=== PATIENT | male | born 1950 | race Caucasian/White ===

== ENCOUNTER 2019-05-01 12:56 | Inpatient (IN) | payer MEDICARE, BC ==
[~2019-05-01] VITALS: Ht 182.9 cm; Wt 108.2 kg
[~2019-05-01 12:56] MED LIST: ASPIRIN325 MG PO; ATACAND HCT 32-1 TAB PO; BAYER CHEWABLE81 MG PO; BENADRYL25 MG PO; BENICAR HCT 40-1 TA1 PO; BETAPACE 80 MG80 MG PO; BETAPACE160 MG PO; CARDIZEM CD240 MG PO; CATAPRES0.1 MG PO; CLARITIN 10 MG10 MG PO; CRESTOR10 MG PO; CRESTOR20 MG PO; CYCLOBENZAPRINE10 MG PO; ELIQUIS5 MG PO; FLOVENT HFA 11012 GM INH; FOLIC ACID1 MG PO; K-DUR20 MEQ; LASIX40 MG PO; MELATONIN 10 M1 EACH PO; MULTIPLE VITAMI1 TA1 PO; NASONEX NASAL S17 GM NS; NITROSTAT0.4 MG SL; NORCO 7.5/325 T1 TA1; PLAVIX75 MG PO; SAW PALMETTO450 MG OR; VALTREX500 MG PO; VITAMIN B-1000 MCG/M IM; VITAMIN B-121000 MC3 GT; VOLTAREN100 MG PO; VOLTAREN25 MG
[2019-05-01] MEDS ORDERED: COZAAR50 MG PO (13:30)
[2019-05-01] MEDS ORDERED: ATIVAN1 MG PO (13:32)
[2019-05-01] MEDS ORDERED: COREG25 MG PO (13:33)
--- NOTE | 2019-05-01 13:54 | NUR ---
PT ARRIVED FROM HOME. NO SIGNS OF DISTRESS. DENIES ANY PAIN OR NEED AT THIS TIME. CALL LIGHT IN REACH. BED LOW POSITION. FAMILY AT BEDSIDE.
[2019-05-01 17:55] VITALS: BP 166/81; BMI 32.3
[2019-05-01 18:07] VITALS: Ht 182.9 cm; Wt 108.2 kg
[2019-05-01 18:41] LABS: ANION GAP 15.9 mmol/L (8-16); C-REACTIVE PROTEIN 3.7 mg/dL (0.0-0.9); CALCIUM 8.6 mg/dL (8.5-10.1); CARBON DIOXIDE 23.9 mmol/L (21.0-32.0); CREATININE - SERUM 1.1 mg/dL (0.6-1.3); HEMATOCRIT 41.1 % (42.0-54.0); HEMOGLOBIN 14.7 g/dL (13.5-17.5); MCH 33.3 pg (26.0-34.0); MCHC 35.8 g/dL (31.0-37.0); POTASSIUM - SERUM 3.8 mmol/L (3.5-5.1); RBC 4.42 10x6/uL (4.20-6.10); RDW 12.9 % (11.5-14.5); WBC 10.5 10x3/uL (4.8-10.8)
[2019-05-01 18:42] LABS: PLATELET COUNT 194 10x3/uL (130-400)
[2019-05-01 19:45] LABS: ERYTHROCYTE SEDIMENTATION RATE 9 mm/hr (0-20)
[2019-05-01 20:16] LABS: APPEARANCE CLEAR (CLEAR); BILIRUBIN NEGATIVE (NEGATIVE); COLOR YELLOW (YELLOW); GLUCOSE NEGATIVE (NEGATIVE); KETONE NEGATIVE (NEGATIVE); NITRITE NEGATIVE (NEGATIVE); PROTEIN NEGATIVE (NEGATIVE); UROBILINOGEN NORMAL (NORMAL)
[2019-05-01 21:10] VITALS: BP 147/64
[2019-05-02 00:37] VITALS: BP 141/68
[2019-05-02 04:02] LABS: BASOPHILS 0.2 % (0-2); EOSINOPHILS 1.2 % (0-7); HEMATOCRIT 40.1 % (42.0-54.0); HEMOGLOBIN 14.1 g/dL (13.5-17.5); IMMATURE GRANULOCYTES 0.2 % (0-5); LYMPHOCYTES 13.6 % (15-50); MCH 32.8 pg (26.0-34.0); MCHC 35.2 g/dL (31.0-37.0); MCV 93.3 fL (80.0-100.0); MEAN PLATELET VOLUME 10.2 fL (7.4-10.4); NEUTROPHILS 68.8 % (40-80); PLATELET COUNT 176 10x3/uL (130-400); RDW 13.1 % (11.5-14.5); WBC 10.1 10x3/uL (4.8-10.8)
[2019-05-02 04:10] LABS: ANION GAP 11.3 mmol/L (8-16); CALCIUM 8.2 mg/dL (8.5-10.1); CARBON DIOXIDE 28.5 mmol/L (21.0-32.0); CREATININE - SERUM 1.3 mg/dL (0.6-1.3); POTASSIUM - SERUM 3.8 mmol/L (3.5-5.1)
[2019-05-02 05:49] VITALS: BP 148/72
[2019-05-02 08:40] VITALS: BP 152/69
--- NOTE | 2019-05-02 09:00 | NUR ---
FLORENTINO AND ORIENTED WITH PT. NPO FOR PROCEDURE WITH CONSENTSW SIGNED AND VERBALIZED UNDERSTANDING. IVF INFUSING AT PRESCRIBED RATE WITH PT. RECEIVING HIBICLES BATH PRIOR TO SURGERY. SCD'S INTACT. REDNESS AND WARMTH NOTED TO RT. ELBOW WITH LIMITED ROM. ENCOURAGED TO USE CALL LIGHT FOR ASSIST.
[2019-05-02 13:04] VITALS: BP 107/65
--- NOTE | 2019-05-02 14:11 | NUR ---
PT LEAVING FOR PROCEDURE VIA BED VIA STAFF. STABLE AT TIME OF DEPARTURE.
[2019-05-02 16:32] VITALS: BP 112/66
[2019-05-02 19:52] VITALS: BP 119/63
--- NOTE | 2019-05-02 22:00 | NUR ---
AWAKE AND ALERT BED LOW AND LOCKED IV TO LEFT FA ARIADNE MCKENZIE ANSD DRSG TO RT ELBOW EDEMA PRESENT BUT CAP REFILL AND CIRCULATION IS GOOD CALL LIGHT IN REACH AUTO SERVICE ADVISOR FOR PAIN
--- NOTE | 2019-05-02 23:32 | NUR ---
I have reviewed this patient and I concur with the Shift Assessment completed by the Licensed Practical Nurse today this shift.
[2019-05-03 01:19] VITALS: BP 120/60
[2019-05-03 04:21] VITALS: BP 109/67
[2019-05-03 05:33] LABS: BASOPHILS 0.2 % (0-2); EOSINOPHILS 1.9 % (0-7); HEMATOCRIT 37.1 % (42.0-54.0); HEMOGLOBIN 13.1 g/dL (13.5-17.5); IMMATURE GRANULOCYTES 0.1 % (0-5); MCH 33.4 pg (26.0-34.0); MCHC 35.3 g/dL (31.0-37.0); MCV 94.6 fL (80.0-100.0); MEAN PLATELET VOLUME 10.7 fL (7.4-10.4); MONOCYTES 15.4 % (2-11); NEUTROPHILS 64.4 % (40-80); PLATELET COUNT 181 10x3/uL (130-400); RBC 3.92 10x6/uL (4.20-6.10); RDW 13.3 % (11.5-14.5)
[2019-05-03 05:49] LABS: ANION GAP 11.9 mmol/L (8-16); CALCIUM 7.8 mg/dL (8.5-10.1); CARBON DIOXIDE 25.6 mmol/L (21.0-32.0); CREATININE - SERUM 1.5 mg/dL (0.6-1.3); POTASSIUM - SERUM 3.5 mmol/L (3.5-5.1)
--- NOTE | 2019-05-03 07:35 | NUR ---
I have reviewed this patient and I concur with the Shift Assessment completed by the Licensed Practical Nurse today this shift.
[2019-05-03 08:56] LABS: ERYTHROCYTE SEDIMENTATION RATE 16 mm/hr (0-20)
--- NOTE | 2019-05-03 09:00 | NUR ---
ALERT AND ORIENTED WITH MCKENZIE WRAP INTACT TO RT. ELBOW. DECREASED EDEMA NOTED. IVF INFUSING TO LT ARM. WITH MONITOR AND STORAGE BIN TENDER DILAUDID EFECTIVE FOR PAIN MANAGEMENT. ENCOURAGED TO USE CALL LIGHT FOR ASISST. CAP REFILL LESS THAN 3 SEC TO RT HANDD.
[2019-05-03 10:07] VITALS: BP 156/75
[2019-05-03 13:28] VITALS: BP 171/97
[2019-05-03 18:01] VITALS: BP 158/82
[2019-05-03 19:45] VITALS: BP 147/92
--- NOTE | 2019-05-03 20:00 | NUR ---
ALERT UP AMBULATING IN ROOM RIGHT ARM IN SLING, EXPERIMENTAL PSYCHOLOGIST IN USE FOR PAIN CONTROL, STATES TOOK HIS OWN HEART MEDICATIONS SEE MAR FOR REPORTED HOME MEDS TAKEN AND MEDS REFUSED, SEE SHIFT ASSESSMENT CALL LIGHT IN REACH
[2019-05-04 05:26] VITALS: BP 149/69
[2019-05-04 07:44] LABS: BASOPHILS 0.2 % (0-2); EOSINOPHILS 2.6 % (0-7); IMMATURE GRANULOCYTES 0.1 % (0-5); LYMPHOCYTES 15.1 % (15-50); MCH 32.8 pg (26.0-34.0); MCHC 34.3 g/dL (31.0-37.0); MCV 95.6 fL (80.0-100.0); MEAN PLATELET VOLUME 10.4 fL (7.4-10.4); MONOCYTES 12.7 % (2-11); NEUTROPHILS 69.3 % (40-80); PLATELET COUNT 178 10x3/uL (130-400); RBC 3.66 10x6/uL (4.20-6.10); RDW 13.2 % (11.5-14.5); WBC 8.3 10x3/uL (4.8-10.8)
[2019-05-04 07:55] LABS: ANION GAP 12.4 mmol/L (8-16); CALCIUM 7.8 mg/dL (8.5-10.1); CARBON DIOXIDE 25.3 mmol/L (21.0-32.0); CREATININE - SERUM 1.4 mg/dL (0.6-1.3); MAGNESIUM - SERUM 2.2 mg/dL (1.8-2.4); POTASSIUM - SERUM 3.7 mmol/L (3.5-5.1)
--- NOTE | 2019-05-04 09:00 | NUR ---
ALERT AND ORIENTED X4 WITH DRESSING INTACT TO RT. ELBOW WITH CONTINUED EDEMA TO RT HAND AND ARM. CAP REFILL<3 SEC. CONTINUED FAST FOOD ASSISTANT RESTAURANT MANAGER DILAUDID AT PRESECRIBED RATE WITH IVF INFUSING VIALT. F/A. TELEMETRY INTACT. WITH SCD TO BLE. ENCOURAGED TO USE CALL LIGHT FOR ASSIST.
[2019-05-04 09:29] VITALS: BP 168/91
--- NOTE | 2019-05-04 11:52 | NUR ---
PT IS REFUSING TELEMETRY DUE TO STATING HAS PACEMAKER.
[2019-05-04 13:27] VITALS: BP 138/69
--- NOTE | 2019-05-04 14:17 | OP ---
PATIENT NAME: MAGALY VOGEL MEDICAL RECORD: [id number] :[birth year] LOCATION:D.MS [id number] ADMISSION DATE:05/01/19 SURGEON: TRINH GILL MD DATE OF OPERATION: 05/02/2019 PREOPERATIVE DIAGNOSIS: Septic olecranon bursitis. 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 PROCEDURES: 1. Right elbow arthrotomy with irrigation and debridement of the elbow itself. 2. Incision of the septic olecranon bursitis with incision and drainage of the septic olecranon bursitis. SURGEON: Trinh Gill MD ANESTHESIA: General. INTRAOPERATIVE COMPLICATIONS: Essentially none. SUMMARY OF PATHOLOGIC FINDINGS: The patient's elbow was found to have a mild turbid appearance of the joint fluid; however, the olecranon bursa had substantial white crystals likely consistent with pseudogout. OPERATIVE SUMMARY IN DETAIL: After obtaining the appropriate preoperative orthopedic surgery consent as well as anesthetic consultation, evaluation, and clearance, the patient was brought to the operating room and placed on the operating table in supine position. After general laryngeal mask airway was administered, the patient's right upper extremity was prepped and draped in routine sterile fashion. The arm was elevated and exsanguinated, tourniquet inflated to 250 mmHg. The incision over the olecranon bursa was encountered 1st. At this point, multiple crystals were noted. Serial and sequential removed the entire bursa itself was excised. Copious irrigation was then done. Having completed this, incision was made in the subanconeous range, taken down to the level of the joint capsule, which was incised. Fluid was noted as above. Cultures were taken and both placed in separate; irrigation of the joint itself was achieved. At this point, the actual capsule of the joint was closed with #1 Vicryl. This was followed 2-0 Vicryl and skin holly. The septic olecranon bursa area was packed with half-inch iodoform gauze. Having completed this, sterile dressings were applied. The patient was then awakened and taken to recovery in stable condition. All final needle and sponge counts were correct. TRANSINT:[id number] Voice Confirmation ID: [id number] DOCUMENT ID: [id number] TRINH GILL MD at 1417 CC: [id number] DICTATION DATE: 05/03/19 1457 MANAGER THERAPY: 05/03/[address] [facility] [address] [id number]
[2019-05-04 18:22] VITALS: BP 161/82
--- NOTE | 2019-05-04 20:00 | NUR ---
ALERT RESTING IN BED, REPORTS PAIN CONTROLED WITH TANK REFINISHER, MCKENZIE WRAP INTACT TO RIGHT ARM, SEE SHIFT ASSESSMENT, CALL LIGHT IN REACH
[2019-05-04 20:14] VITALS: BP 164/73
[2019-05-05 04:57] LABS: BASOPHILS 0.4 % (0-2); EOSINOPHILS 2.3 % (0-7); HEMOGLOBIN 12.2 g/dL (13.5-17.5); IMMATURE GRANULOCYTES 0.3 % (0-5); LYMPHOCYTES 20.9 % (15-50); MCH 32.5 pg (26.0-34.0); MCHC 33.9 g/dL (31.0-37.0); MEAN PLATELET VOLUME 10.5 fL (7.4-10.4); MONOCYTES 10.7 % (2-11); NEUTROPHILS 65.4 % (40-80); PLATELET COUNT 187 10x3/uL (130-400); RBC 3.75 10x6/uL (4.20-6.10); WBC 7.7 10x3/uL (4.8-10.8)
[2019-05-05 05:12] LABS: ANION GAP 12.2 mmol/L (8-16); CALCIUM 8.3 mg/dL (8.5-10.1); CARBON DIOXIDE 25.6 mmol/L (21.0-32.0); CREATININE - SERUM 1.3 mg/dL (0.6-1.3); POTASSIUM - SERUM 3.8 mmol/L (3.5-5.1)
[2019-05-05 05:26] VITALS: BP 153/76
[2019-05-05] MEDS ORDERED: PERCOCET 10-321 EAC1 PO (08:35)
[2019-05-05] MEDS ORDERED: VIBRAMYCIN 100100 MG PO (08:35)
[2019-05-05] MEDS ORDERED: BACTRIM 400-801 TAB PO (08:37)
[2019-05-05 09:02] VITALS: BP 157/96
--- NOTE | 2019-05-05 09:28 | MORECARE ---
CASE MANAGEMENT DISCHARGE SUMMARY PATIENT: MAGALY MATA T UNIT: [id number] ADM DATE: 05/01/19 AGE: 68 : 49 SEX: M ROOM/BED: D.2228 AUTHOR: MAY SIDDIQI PHYSICIAN: REFERRING PHYSICIAN: RENE VARNER DO DATE OF SERVICE: 05/05/19 Discharge Plan Patient Name: MAGALY MATA [facility] [facility] 1950 Planned Disposition: Home with Home Health Anticipated Discharge Date: 05/05/19 Discharge Date: Expected LOS: 4 Initial Reviewer: [email or web address] Initial Review Date: 05/06/2019 Generated: 05/05/19 10:28 am DCPIA - Discharge Planning Initial Assessment Updated by [email or web address]: Julia Méndez on 05/05/19 9:27 am * Is the patient Alert and Oriented? Yes * How many steps to enter\exit or inside your home? 1/0 * PCP Dr. Varner * Pharmacy [facility] * Preadmission Environment Home with Family * ADLs Independent * Equipment None * List name and contact numbers for known caregivers / representatives who currently or will assist patient after discharge: Ilana Mata - spouse - [phone] * Verbal permission to speak to the caregivers and representatives has been obtained from the patient. Yes * Community resources currently utilized None * Additional services required to return to the preadmission environment? Yes * Can the patient safely return to the preadmission environment? Yes * Has this patient been hospitalized within the prior 30 days at any hospital? No External Providers External Provider: [facility] Next Contact Date: Service Request Date: Service Type: Resolution: Reviewer: Comments: Patient Name: MAGALY MATA Page [phone] at 0928 All edits/amendments must be made on the electronic document DICTATION DATE: 05/05/19926 WHEEL SHOP SUPERVISOR: MIRZA 05/05/19926 RPT#: [id number] DC DATE: STATUS: ADM IN [facility] [address] [place] [address] END OF REPORT
--- NOTE | 2019-05-05 09:37 | MORECARE ---
CASE MANAGEMENT DISCHARGE SUMMARY PATIENT: MAGALY VOGEL UNIT: [id number] ADM DATE: 05/01/19 AGE: 68 : 49 SEX: M ROOM/BED: D.2228 AUTHOR: NEERU,DOC PHYSICIAN: REFERRING PHYSICIAN: RENE VARNER DO DATE OF SERVICE: 05/05/19 Discharge Plan Patient Name: MAGALY VOGEL Facility: [facility]:[place] : 1950 Planned Disposition: Home with Home Health Anticipated Discharge Date: 05/05/19 Discharge Date: Expected LOS: 4 Initial Reviewer: [email or web address] Initial Review Date: 05/06/2019 Generated: 05/05/19 10:36 am Comments DCP- Discharge Planning Updated by [email or web address]: Julia Méndez on 05/05/19 8:[address] Patient Name: MAGALY VOGEL Admission Status: Elective Accout number: [id number] Admission Date: 05-01-2019 : 1950 Admission Diagnosis: Attending: RENE VARNER Current LOS: 4 Anticipated DC Date: 05-05-2019 Planned Disposition: Home with Home Health Primary Insurance: MEDICARE A & B Discharge Planning Comments: CM met with patient to complete initial dc planning assessment. CM educated patient on the CM role and verbal consent given by patient to complete assessment. Patient lives at home with his . At discharge patient plans to return and feels this is a safe discharge. CM discussed availability of home health, rehab services, and medical equipment. ALFONZO for [facility] signed. I called [facility] and spoke with Nathalie and clinical faxed. CM will continue to follow and will assist as needed with dc plans/needs. Physical address: [address] in [facility] Dust Box Tender: Julia Méndez DCPIA - Discharge Planning Initial Assessment Updated by [email or web address]: Julia Méndez on 05/05/19 9:27 am * Is the patient Alert and Oriented? Yes * How many steps to enter\exit or inside your home? 1/0 * PCP Dr. Varner * Pharmacy [facility] * Preadmission Environment Home with Family * ADLs Independent * Equipment None * List name and contact numbers for known caregivers / representatives who currently or will assist patient after discharge: Ilana Castano [facility] - [phone] * Verbal permission to speak to the caregivers and representatives has been obtained from the patient. Yes * Community resources currently utilized None * Additional services required to return to the preadmission environment? Yes * Can the patient safely return to the preadmission environment? Yes * Has this patient been hospitalized within the prior 30 days at any hospital? No Coverage Notice Reviewer: [id number] Méndez Notice Issued Date-Time: 05/05/2019 9:30 Notice Type: IM Discharge Notice Notice Delivered To: Patient Relationship to Patient: Self Tail Board Worker Name: Delivery Method: HAND - Hand Delivered Serenity Days: Prior Verbal Notification: Recipient Understood Notice: Yes Recipient Signature: Yes Med Rec Note Co-signed by Attending: Coverage Notice Comment: IMM explained, signed, given, copy placed in MR Reviewer: [id number] Méndez Notice Issued Date-Time: 05/05/2019 9:30 Notice Type: Patient Choice Letter Notice Delivered To: Patient Relationship to Patient: Self Tail Board Worker Name: Delivery Method: HAND - Hand Delivered Serenity Days: Prior Verbal Notification: Recipient Understood Notice: Yes Recipient Signature: Yes Med Rec Note Co-signed by Attending: Coverage Notice Comment: ALFONZO for [facility] Last DP export: 05/05/19 8:28 am Patient Name: MAGALY VOGEL Page [phone] at 0937 All edits/amendments must be made on the electronic document DICTATION DATE: 05/05/19935 CHILD CARE COORDINATOR: MIRZA 05/05/19935 RPT#: [id number] DC DATE: STATUS: ADM IN [facility] [address] [place] [address] END OF REPORT
--- NOTE | 2019-05-05 10:15 | NUR ---
I have reviewed this patient and I concur with the Shift Assessment completed by the Licensed Practical Nurse today this shift.
--- NOTE | 2019-05-05 10:29 | NUR ---
As per Dr. Branch's request, dressing change done prior to d/c. Removed 1/2" packing from right elbow incision. Cleansed wound with saline and repacked with 1/4" iodoform packing. Wound bed is red and bleeds easily. No odor or signs of infection. Covered with sterile 4x4s and secured with kerlix and MCKENZIE wrap.
--- NOTE | 2019-05-05 10:37 | NUR ---
DISCHARGE INSTRUCTIONS GIVEN. SEEMS TO UNDERSTAND INSTRUCTIONS. IV OUT TIP INTACT. SLING ON. DENIES ANY NEED LEFT WITH HOSPITAL STAFF TO GO HOME WTIH FAMILY MEMBER IN PERSONAL RIDE.
--- NOTE | 2019-05-06 06:50 | MORECARE ---
CASE MANAGEMENT DISCHARGE SUMMARY PATIENT: MAGALY MATA UNIT: [id number] ADM DATE: 05/01/19 AGE: 68 : 49 SEX: M ROOM/BED: D.2228 AUTHOR: NEERU,DOC PHYSICIAN: REFERRING PHYSICIAN: RENE VARNER DO DATE OF SERVICE: 05/06/19 Discharge Plan Patient Name: MAGALY MATA Facility: [facility]:[place] : 1950 Planned Disposition: Home with Home Health Anticipated Discharge Date: 05/05/19 Discharge Date: 05/05/2019 Expected LOS: 4 Initial Reviewer: [email or web address] Initial Review Date: 05/06/2019 Generated: 05/06/19 7:50 am Comments DCP- Discharge Planning Updated by [id number]: Julia Méndez on 05/05/19 8:[address] Patient Name: MAGALY MATA Admission Status: Elective Accout number: [id number] Admission Date: 05-01-2019 : 1950 Admission Diagnosis: Attending: RENE VARNER Current LOS: 4 Anticipated DC Date: 05-05-2019 Planned Disposition: Home with Home Health Primary Insurance: MEDICARE A & B Discharge Planning Comments: CM met with patient to complete initial dc planning assessment. CM educated patient on the CM role and verbal consent given by patient to complete assessment. Patient lives at home with his . At discharge patient plans to return and feels this is a safe discharge. CM discussed availability of home health, rehab services, and medical equipment. ALFONZO for [facility] signed. I called [facility] and spoke with Nathalie and clinical faxed. CM will continue to follow and will assist as needed with dc plans/needs. Physical address: [address] in [facility] Project Officer: Julia Méndez DCPIA - Discharge Planning Initial Assessment Updated by [email or web address]: Julia Méndez on 05/05/19 9:27 am * Is the patient Alert and Oriented? Yes * How many steps to enter\exit or inside your home? 1/0 * PCP Dr. Varner * Pharmacy [facility] * Preadmission Environment Home with Family * ADLs Independent * Equipment None * List name and contact numbers for known caregivers / representatives who currently or will assist patient after discharge: Ilana Mata - spouse - [phone] * Verbal permission to speak to the caregivers and representatives has been obtained from the patient. Yes * Community resources currently utilized None * Additional services required to return to the preadmission environment? Yes * Can the patient safely return to the preadmission environment? Yes * Has this patient been hospitalized within the prior 30 days at any hospital? No Coverage Notice Reviewer: [id number] Méndez Notice Issued Date-Time: 05/05/2019 9:30 Notice Type: IM Discharge Notice Notice Delivered To: Patient Relationship to Patient: Self Brake Shoe Rebuilder Name: Delivery Method: HAND - Hand Delivered Serenity Days: Prior Verbal Notification: Recipient Understood Notice: Yes Recipient Signature: Yes Med Rec Note Co-signed by Attending: Coverage Notice Comment: IMM explained, signed, given, copy placed in MR Reviewer: [id number] Méndez Notice Issued Date-Time: 05/05/2019 9:30 Notice Type: Patient Choice Letter Notice Delivered To: Patient Relationship to Patient: Self Brake Shoe Rebuilder Name: Delivery Method: HAND - Hand Delivered Serenity Days: Prior Verbal Notification: Recipient Understood Notice: Yes Recipient Signature: Yes Med Rec Note Co-signed by Attending: Coverage Notice Comment: ALFONZO for [facility] Last DP export: 05/05/19 8:37 am Patient Name: MAGALY MATA Page [phone] at 0650 All edits/amendments must be made on the electronic document DICTATION DATE: 05/06/19 0650 BRANCH SPECIALIST: MIRZA 05/06/19 0650 RPT#: [id number] DC DATE:05/05/19 STATUS: DIS IN [facility] [address] [place] [address] END OF REPORT
== END 2019-05-05 10:38 | disposition home health service (06) | DRG 507 ==
LOC: D.MS 12:56
PROVIDERS: Internal Medicine Nephrology; Orthopaedic Surgery; ADMIT Family Medicine; ATTEND Family Medicine
PROC: 0R9L0ZZ Drainage of Right Elbow Joint, Open Approach (ICD-10-PCS; principal; 2019-05-02 15:15)
DX: M71.121 Other infective bursitis, right elbow (principal); M00.821 Arthritis due to other bacteria, right elbow; I10 Essential (primary) hypertension; I48.91 Unspecified atrial fibrillation; I25.10 Atherosclerotic heart disease of native coronary artery without angina pectoris; Z95.0 Presence of cardiac pacemaker; Z72.0 Tobacco use